=== PATIENT | male | born 1935 | race Caucasian/White ===

== ENCOUNTER 2016-08-17 15:55 | Emergency (ER) | payer MEDICARE ==
[~2016-08-17] VITALS: Ht 181.6 cm; Wt 88.6 kg
[~2016-08-17 15:55] MED LIST: ASPI81TA82 PO; ATEN-100 PO; GLUCTAB PO; MULT-84; OMEG100010; PLAV75TA PO; PRAV20TA67 PO; TERA1CAP3 PO
[2016-08-17 16:05] VITALS: BP 204/101; PULSE 51; RESP 16; TEMP 97.8; O2SAT 98
[2016-08-17] MEDS ORDERED: MULT1TAB85 PO (16:23)
[2016-08-17] MEDS ORDERED: PRAV20TA2 PO (16:23)
[2016-08-17] MEDS ORDERED: CLOP75TA PO (16:23)
[2016-08-17] MEDS ORDERED: TERA1CAP3 PO (16:23)
[2016-08-17] MEDS ORDERED: ASPI81CH CHEW (16:23)
[2016-08-17] MEDS ORDERED: ATEN100T PO (16:23)
[2016-08-17] MEDS ORDERED: METF500T PO (16:23)
[2016-08-17 16:44] VITALS: O2SAT 98
[2016-08-17] MEDS ORDERED: hydrALAZINE HCL 20 MG/ML VIAL IV PUSH ONE ×2 (16:45→17:15)
[2016-08-17 16:48] VITALS: BP 244/100; PULSE 48; RESP 20; O2SAT 99
[2016-08-17 16:48] LABS: AUTOMATED NEUTROPHIL # 3.4 TH/MM3 (1.8-7.7); BASOPHIL % 0.8 % (0.0-2.0); EOSINOPHIL # 0.3 TH/MM3 (0-0.4); EOSINOPHIL % 5.7 % (0.0-4.0); HEMATOCRIT 39.8 % (39.0-51.0); HEMO FLAGS DIFF FINAL; LYMPH % 28.2 % (9.0-44.0); LYMPHOCYTE # 1.7 TH/MM3 (1.0-4.8); MEAN CELL VOLUME 86.6 FL (80.0-100.0); MEAN CORPUSCULAR HEMOGLOBIN 29.2 PG (27.0-34.0); MEAN CORPUSCULAR HGB CONC 33.7 % (32.0-36.0); MONO % 11.9 % (0.0-8.0); NEUT % 53.4 % (16.0-70.0); PLATELET COUNT 123 TH/MM3 (150-450); RED CELL DISTRIBUTION WIDTH 12.9 % (11.6-17.2); WHITE BLOOD COUNT 6.1 TH/MM3 (4.0-11.0)
[2016-08-17 16:56] LABS: POTASSIUM 4.2 MEQ/L (3.5-5.1)
--- NOTE | 2016-08-17 16:57 | PD ---
HPI Chief Complaint: Hypertension Time Seen by Provider: 16:29 Travel History International Travel<30 days: No Contact w/Intl Traveler<30days: No Traveled to known affect area: No History of Present Illness HPI 81-year-old male complains of elevated blood pressure. Patient has history hypertension. Patient states that his blood pressure has been elevated for the past year. Patient is on atenolol 100 mg daily. Patient was advised by his physician to take an extra atenolol if blood pressure is elevated. Patient took an extra atenolol 100 mg today for a total of 200 mg for elevated blood pressure today. Patient denies any headache. Patient denies any visual change. Patient denies any neck pain. Patient denies any chest pain or shortness of breath. Patient denies abdominal pain. Patient denies any focal weakness or numbness of extremity. Patient status post right lower eyelid surgery 3 days ago. PFSH Past Medical History Hx Anticoagulant Therapy: Yes (asa 81mg) Cancer: Yes (BLADDER) Cardiovascular Problems: Yes (htn on meds) High Cholesterol: Yes Cerebrovascular Accident: Yes (tia) Diabetes: Yes (type 2) Patient Takes Glucophage: Yes Diminished Hearing: No Endocrine: Yes Genitourinary: Yes Hypertension: Yes Immune Disorder: No Musculoskeletal: No Neurologic: No Psychiatric: No Reproductive: No Respiratory: No Thyroid Disease: No Past Surgical History Other Surgery: Yes (MELANOMA REMOVED L ARM) Social History Alcohol Use: No Tobacco Use: No Substance Use: No Allergies-Medications (Allergen,Severity, Reaction): Coded Allergies: Calcium Channel Blockers (Verified Allergy, Intermediate, dizziness, ) Levaquin (Verified Allergy, Intermediate, headache, 08/17/16) Levofloxacin (Verified Allergy, Intermediate, headache, 08/17/16) RENETTA Inhibitors (Verified Allergy, Unknown, 08/17/16) Felodipine (Verified Allergy, Unknown, 08/17/16) Losartan (Verified Allergy, Unknown, headaches, 08/17/16) Penicillin (Verified Allergy, Unknown, 08/17/16) Reported Meds & Prescriptions Reported Meds & Active Scripts Active Reported Terazosin (Terazosin HCl) 1 Mg Cap 1 Mg PO HS Pravastatin 20 Mg Tab 20 Mg PO HS Aspirin 81 Mg Chew 81 Mg CHEW DAILY Metformin (Metformin HCl) 500 Mg Tab 500 Mg PO BIDPC With meals Multivitamin Men (Multiple Vitamins W/ Minerals) 1 Tab Tab 1 Tab PO DAILY Clopidogrel (Clopidogrel Bisulfate) 75 Mg Tab 75 Mg PO DAILY Atenolol 100 Mg Tab 100 Mg PO DAILY Review of Systems General / Constitutional: No: Fever Eyes: No: Visual changes HENT: No: Headaches Cardiovascular: No: Chest Pain or Discomfort Respiratory: No: Shortness of Breath Gastrointestinal: No: Abdominal Pain Genitourinary: No: Dysuria Musculoskeletal: No: Pain Skin: No Rash Neurologic: No: Weakness Psychiatric: No: Depression Endocrine: No: Polydipsia Hematologic/Lymphatic: No: Easy Bruising Physical Exam Narrative GENERAL: Well-nourished, well-developed patient. SKIN: Focused skin assessment warm/dry. HEAD: Normocephalic. EYES: No scleral icterus. No injection or drainage. Pupils 2 mm equal reactive. NECK: Supple, trachea midline. No JVD or lymphadenopathy. CARDIOVASCULAR: Regular rate and rhythm without murmurs, gallops, or rubs. RESPIRATORY: Breath sounds equal bilaterally. No accessory muscle use. GASTROINTESTINAL: Abdomen soft, non-tender, nondistended. MUSCULOSKELETAL: No cyanosis, or edema. BACK: Nontender without obvious deformity. No CVA tenderness. Neurologic exam normal. Data Data Last Documented VS Vital Signs Date Time Temp Pulse Resp B/P Pulse Ox O2 Delivery O2 Flow Rate FiO2 08/17/16 17:20 53 20 206/90 98 08/17/16 16:05 97.8 Orders Hydralazine Inj (Apresoline Inj) (08/17/16 16:45) Complete Blood Count With Diff (08/17/16 16:39) Basic Metabolic Panel (Bmp) (08/17/16 16:39) Prothrombin Time / Inr (Pt) (08/17/16 16:39) Act Partial Throm Time (Ptt) (08/17/16 16:39) Iv Access Insert/Monitor (08/17/16 16:39) Ecg Monitoring (08/17/16 16:39) Oximetry (08/17/16 16:39) Hydralazine Inj (Apresoline Inj) (08/17/16 17:15) Labs Laboratory Tests Test 08/17/16 16:40 White Blood Count 6.1 TH/MM3 Red Blood Count 4.60 MIL/MM3 Hemoglobin 13.4 GM/DL Hematocrit 39.8 % Mean Corpuscular Volume 86.6 FL Mean Corpuscular Hemoglobin 29.2 PG Mean Corpuscular Hemoglobin 33.7 % Concent Red Cell Distribution Width 12.9 % Platelet Count 123 TH/MM3 Mean Platelet Volume 9.0 FL Neutrophils (%) (Auto) 53.4 % Lymphocytes (%) (Auto) 28.2 % Monocytes (%) (Auto) 11.9 % Eosinophils (%) (Auto) 5.7 % Basophils (%) (Auto) 0.8 % Neutrophils # (Auto) 3.4 TH/MM3 Lymphocytes # (Auto) 1.7 TH/MM3 Monocytes # (Auto) 0.7 TH/MM3 Eosinophils # (Auto) 0.3 TH/MM3 Basophils # (Auto) 0.0 TH/MM3 CBC Comment DIFF FINAL Differential Comment Prothrombin Time 10.5 SEC Prothromb Time International 1.0 RATIO Ratio Activated Partial 26.8 SEC Thromboplast Time Sodium Level 138 MEQ/L Potassium Level 4.2 MEQ/L Chloride Level 102 MEQ/L Carbon Dioxide Level 27.9 MEQ/L Anion Gap 8 MEQ/L Blood Urea Nitrogen 23 MG/DL Creatinine 1.30 MG/DL Estimat Glomerular Filtration 53 ML/MIN Rate Random Glucose 114 MG/DL Calcium Level 8.8 MG/DL [facility] Medical Decision Making Medical Screen Exam Complete: Yes Emergency Medical Condition: Yes Interpretation(s) 1708 p.m. CBC within normal limit. BMP within normal limit. BUN 23. Differential Diagnosis Differential diagnosis including uncontrolled hypertension, hypertensive urgency , hypertensive crisis. Narrative Course 81-year-old male complains of elevated blood pressure. History hypertension. Hydralazine 10 mg IV given. Repeated hydralazine 10 mg IV. 1740 5 PM. Blood pressure came under better control. Diagnosis Primary Impression: Uncontrolled hypertension Patient Instructions: General Instructions Additional Instructions: Continue with atenolol 100 mg daily. Clonidine 0.1 mg twice a day. Advised patient to check blood pressure daily. Advised patient to follow-up with local physician. Return if persistent elevated blood pressure or worse. Med/Other Pt SpecificInfo: Prescription(s) given Scripts Clonidine 0.1 Mg Tab0.1 Mg PO BID #60 TAB Ref 0 Prov:Phil Connolly MD 08/17/16 Disposition: 01 DISCHARGE HOME Condition: Stable Phil Connolly MD Aug 17, 2016 16:56
[2016-08-17 16:59] LABS: BICARBONATE 27.9 MEQ/L (21.0-32.0)
[2016-08-17 17:02] LABS: APTT (PATIENT) 26.8 SEC (24.3-30.1); PROTHROMBIN TIME - PATIENT 10.5 SEC (9.8-11.6)
[2016-08-17 17:20] VITALS: BP 206/90; PULSE 53; RESP 20; O2SAT 98
[2016-08-17] MEDS ORDERED: CLON0.1T PO (17:47)
[2016-08-17 17:52] VITALS: BP 180/74
== END 2016-08-17 18:05 | disposition home or self-care (01) ==
LOC: PHED 15:55
DX: I10 Essential (primary) hypertension (principal); E11.9 Type 2 diabetes mellitus without complications; Z79.01 Long term (current) use of anticoagulants
CPT/HCPCS: 80048; 85025; 85610; 85730; 96374; 96376; 99283; J0360